=== PATIENT | female | born 1945 | race Caucasian/White ===

== ENCOUNTER 2023-11-30 08:00 | Outpatient (RCR) | payer MEDICARE, BC, SELFPAY ==
--- NOTE | 2023-11-08 08:57 | OPREHPOC ---
Outpatient Therapy Plan of Care This is a Multidisciplinary Plan of Care that may contain components documented by all disciplines (PT, OT, and ST.) PT Problem 1 PT Problem #1 Knowledge Deficit PT Goal 1 Goal *indep with HEP PT Problem 2 PT Problem #2 Pain PT Goal 1 Goal 1* pt report pain at worst rating of 4/10 2* self assessment with LE functional scale of 24% limitation in activity level 3* no increase in pain reported with 2 minute walking test PT Problem 3 PT Problem #3 Impaired Flexibility PT Goal 1 Goal increase R hip/knee flexibility to improve mobility and decrease muscle imbalance 1* supine hamstring length of 70' SLR 2* anterior hip/quad length with prone knee flexion 100' PT Problem 4 PT Problem #4 Impaired Strength PT Goal 1 Goal increase strength of R hip and knee to improve stability to knee joint: 1* mat exercises x 20 reps with good stability 2* single leg standing 10- seconds 3* 2 minute walking test distance of 450'
--- NOTE | 2023-11-08 08:58 | PTOPEVAL1 ---
Assessment and note entered by Jessica Jenkins, PT Evaluation Information Assessment Status Evaluation Diagnosis acute R knee pain Onset Jun 2023 Subjective Information gradual increase in pain, knee giving out on stairs; xray: arthritis in knee, per pt Activity: retired, indep with all home tasks, self care and drives Reported Pain Level Pain Score Self Report Additional Pain Score Comments pain range in the past week 0-7/10; distal patella area--rubbing, hurts, knee gives out with walking and on stairs increase pain: walking, yard work, unable to state activity tolerance---varies and just gives out and hurts;stairs decrease pain: walk slowly; sit, rest does not take any pain meds, does not use ice/med- instruct on ice use PRN; sleeping is OK; Assessment PT Clinical Summary Yue has the diagnosis of acute R knee pain. LE functional scale self assessment score of 38% limitation in activity level. She is indep with all home and self care activities. Reports her knee gives out with walking and on stairs. With the evaluation, she has good ROM of R knee with pain on full extension; weakness over R hip and knee, with tightness of R hamstring and anterior hip/quad; 2 minute walking test distance of 375' with increase pain in knee. Skilled PT services are indicated for modalities to decrease pain, therapeutic exercises to increase strength and flexibility and education for HEP and pain control. Plan of Care Interventions Electrical Stimulation,Hot Pack/Cold Pack,Manual Therapy,Neuro Re-education,Patient Education,Therapeutic Activities,Therapeutic Exercise,Ultrasound,Other Other Interventions taping PT Services Indicated Yes Treatment Frequency and 2x/wk for 8 total visits Duration These treatments will address the objective and functional deficits as defined above. Th
--- NOTE | 2023-11-30 08:47 | PTOPDC ---
Assessment and note entered by Jessica Jenkins, PT Discharge Information Assessment Status Discharge Diagnosis acute R knee pain Onset Jun 2023 Subjective Information doing much better, knee does not hurt and has not given out; doing exercises 15-20 reps; doing OK on stairs; is working out in the yard and cleaning the house; ready to be done with therapy, do not need anymore, doing OK; Reported Pain Level Pain Score Self Report Additional Pain Score Comments no pain in the past week in R knee; Assessment PT Clinical Summary Yue has received 8 PT sessions. Reports she is able to do everything at home, like she usually does--yard work and stairs are OK. Compared to the initial evaluation: improved in all areas: pain decreased from 0-7/10 to 0/10 pain in the past week; self assessment LE functional scale from 38 to 15% limitation; increase flexibility of R hamstring and anterior hip-quad muscle; increase strength of R hip and knee, but still decreased single leg standing time to 2 seconds; 2 minute walking test distance from 375' to 425'; indep with HEP. All the goals were achieved, except single leg standing time. Discharge PT. She is to continue with her HEP and progress activity/walking as tolerated. Plan of Care PT Services Indicated No
== END 2023-11-30 09:09 | disposition home or self-care (01) ==
LOC: ANHPT 08:00
PROVIDERS: PCP Family Medicine; Visit Provider Family Medicine
DX: M25.561 Pain in right knee (principal)
CPT/HCPCS: 97014; 97110; 97161; 97530; G0283